=== PATIENT | female | born 1980 | race Caucasian/White ===

== ENCOUNTER → 2018-08-05 10:06 | Outpatient (CLI) | payer OTHER, SELFPAY ==
--- NOTE | 2018-08-05 10:13 | US_ITS ---
US transvaginal Ordering Physician: Marcial Nguyen MD Patient Age: 38 years: Female HISTORY: ITS.REASON: pelvic pain probable ovarian cyst. Pelvic pain. TECHNIQUE: Transvaginal pelvic ultrasound. MW COMPARISON :No previous studies for comparison FINDINGS Uterus is moderate size and overall within normal limits. Uterus measures 6.7 cm length x 2.6 cm x 2.9 cm wide. No uterine masses. Only note generous veins and vascular structures about margin of the uterus Minimal Endometrium measures less than 2.5 mm. Normal thickness Ovaries appear within normal size and appearance bilaterally. No fluid in cul-de-sac. Right ovary measures 2.65 cm x 1.2 x 1.75 cm. Left ovary measures 2.25 cm x 1.6 cm x 1.4 cm. No dominant cyst, but there are a but there are least 3 or 4 small follicles measuring up to 6 mm size IMPRESSION: . Uterus modest size.. WNL. Only note slight Generous vessels about margin of uterus Ovaries appear normal in size and appear normal bilaterally. No fluid in cul-de-sac . specifically note Left ovary normal size. No dominant cyst but there are 3-4 small follicles measuring up to 6 mm size each
== END ==
PROVIDERS: Visit Provider Obstetrics & Gynecology
DX: R10.2 Pelvic and perineal pain (principal)
CPT/HCPCS: 76830